=== PATIENT | male | born 1940 | race Caucasian/White ===

== ENCOUNTER 2018-05-09 07:13 | Day surgery (SDC) | payer MEDICARE ==
[2018-05-09 08:13] VITALS: BMI 34.5
[2018-05-09] MEDS ORDERED: Lactated Ringer's 500 ML IV ONE (08:22)
[2018-05-09] MEDS ORDERED: Propofol 10 mg/ml Inj (20 ML) ONE ×2 (10:03→10:23)
[2018-05-09 10:56] VITALS: O2SAT 98
[2018-05-09 11:30] VITALS: BP 121/68; PULSE 78; RESP 17; TEMP 97.6
== END 2018-05-09 11:27 | disposition home or self-care (01) ==
LOC: H.ENDO 07:13
PROVIDERS: ATTEND Internal Medicine Gastroenterology
DX: K63.89 Other specified diseases of intestine (principal); I10 Essential (primary) hypertension; R19.5 Other fecal abnormalities; K57.30 Diverticulosis of large intestine without perforation or abscess without bleeding
CPT/HCPCS: 45380; 88305; J2001; J2704; J7120